=== PATIENT | female | born 1970 | race Caucasian/White ===

== ENCOUNTER 2024-12-23 13:01 | Emergency (ER) | payer OTHER, SELFPAY ==
[2024-12-23 13:12] VITALS: BP 118/80
--- NOTE | 2024-12-23 13:35 | ED.GENMED ---
History of Present Illness
General
Chief Complaint: Skin Surface Trauma
Source: patient
Time Seen by Provider: 12/23/24 13:27
History of Present Illness
History of Present Illness:
54-year-old female with past medical history of asthma presenting to the emergency department for evaluation after cutting her left little finger with a knife while attempting to cut frozen blueberries last night, the bleeding persisted today which
is why patient presented to the ER today. She is right-hand dominant, no other injuries were sustained. Patient unsure of last tetanus but is declining to have the tetanus updated here.
Past History
Past History
ED Past Medical History: Asthma
ED Past Surgical History: Gynecological
Social History
Tobacco: Non-smoker
Alcohol: Occasional
Living: with family
Review of Systems
Review of Systems
All Other Systems: ROS reviewed and negative except as documented in HPI and ROS
Phy Exam
Physical Exam
Physical Exam:
GENERAL: Alert , in no apparent distress
EYE: conjunctiva clear
Head: Normocephalic atraumatic
NECK: Supple,
ENT: mmm.
LUNGS: no acute respiratory distress
NEUROLOGICAL: Alert and oriented
SKIN: Warm and dry, Superficial skin avulsion of the epidermal layer to the palmar surface distal phalanx left little finger. Mild oozing but no arterial bleeding
MUSCULOSKELETAL: well perfused. Full range of motion all extremities
PSYCH: Normal and appropriate interaction.
Scores
Heart Failure Risk
Heart Failure Risk Score: Not Applicable
Heart Score for Chest Pain Patients
STEMI patient?: Not applicable
Withdrawal Assessment of Alcohol
Withdrawal Assessment Completed?: Not applicable
Course
Vital Signs
Initial and Last Documented VS:
Initial Vital Signs
Temp Pulse Resp BP Pulse Ox
98.0 F 87 16 118/80 98
12/23/24 13:12 12/23/24 13:12 12/23/24 13:12 12/23/24 13:12 12/23/24 13:12
Last Documented Vital Signs
Temp Pulse Resp BP Pulse Ox
98.0 F 87 16 118/80 98
12/23/24 13:12 12/23/24 13:12 12/23/24 13:12 12/23/24 13:12 12/23/24 13:38
MDM/Problems Addressed
MDM/Problems Addressed:
54-year-old female presenting to the emergency department for evaluation of superficial skin avulsion to the left little finger. Given how superficial the wound is we will place Gelfoam over the affected area. Dressing applied. Patient advised on
wound care. Motrin/Tylenol as needed for pain. Patient aware of return precautions to the ER.
*Pulse Oximetry
SaO2: 98
Oxygen Mode of Delivery: Room air
Patient hypoxic: no
*Critical Care Note
Total Time (30-74mins, 75-104mins- exclusive of procedures): Not Applicable
ED Attending Note
-
Portions of this chart may have been created with voice recognition software.� Occasional wrong word or��sound alike� substitutions may have occurred due to the inherent limitations of voice recognition software.
Discharge Plan
Departure
Patient Disposition: Home (Routine Discharge)
Date of Disposition: 12/23/24
Time of Disposition: 13:36
Patient with high blood pressure during this ER visit?: No
Discharge Problem:
Laceration of left little finger
Instructions: Wound Care (DC)
Interventions
Interventions:
*Risk Screen - Suicide Last Done: 12/23/24 13:12
*Neglect/Abuse Screening Last Done: 12/23/24 13:12
*Nursing Disposition Last Done: 12/23/24 13:49
ED-Skin Assessment Last Done: 12/23/24 13:47
Discharge Date and Time
Discharge Date/Time: 12/23/24 13:50
Print Language: [place]
== END 2024-12-23 13:50 | disposition home or self-care (01) ==
LOC: EMR 13:01
PROVIDERS: EMERGENCY PHYSICIAN Emergency Medicine; FAMILY PHYSICIAN Internal Medicine
DX: S61.217A Laceration without foreign body of left little finger without damage to nail, initial encounter (principal); W26.0XXA Contact with knife, initial encounter; J45.909 Unspecified asthma, uncomplicated
CPT/HCPCS: 99282